=== PATIENT | male | born 1995 | race African-American/Black ===

== ENCOUNTER 2020-12-14 06:58 | Emergency (ER) | payer OTHER ==
[~2020-12-14] VITALS: Ht 172.7 cm; Wt 65.8 kg
[2020-12-14 07:28] VITALS: BP 152/104
[2020-12-14] MEDS ORDERED: IBUPROFEN 800 MG TAB PO ONE (08:15)
== END 2020-12-14 08:13 | disposition home or self-care (01) ==
LOC: ER 06:58
DX: S83.8X2A Sprain of other specified parts of left knee, initial encounter (principal); I10 Essential (primary) hypertension; W08.XXXA Fall from other furniture, initial encounter; Y93.89 Activity, other specified; Y92.89 Other specified places as the place of occurrence of the external cause; Y99.8 Other external cause status
CPT/HCPCS: 73562